=== PATIENT | female | born 1965 | race Caucasian/White ===

== ENCOUNTER 2016-10-30 17:13 | Inpatient (IN) | payer OTHER ==
[~2016-10-30] VITALS: Ht 162.6 cm; Wt 67.2 kg
[2016-10-30 19:54] VITALS: BP 101/54; RESP 19
[2016-10-30 20:00] VITALS: PULSE 55
[2016-10-30 21:37] VITALS: Ht 162.6 cm; Wt 67.2 kg
[2016-10-30] MEDS ORDERED: ACETAMINOPHEN 325 MG TAB PO PRN (22:00)
[2016-10-30] MEDS ORDERED: ONDANSETRON 4 MG TAB PO PRN (22:00)
[2016-10-30] MEDS ORDERED: NITROGLYCERIN (SL) 0.4 MG TAB SL PRN (22:00)
[2016-10-30] MEDS: ASPIRIN (EC) 81 MG TAB PO SCH (22:11)
[2016-10-30 23:30] VITALS: BP 101/56; RESP 19
[2016-10-31] VITALS (11 sets, daily range): BP systolic 91–108; BP diastolic 49–56; PULSE 48–72; RESP 14–20
[2016-10-31 02:11] LABS: BASOPHIL # 0.1 10^3/ul (0.0-0.1); EOSINOPHILS # 0.5 10^3/ul (0.0-0.5); EOSINOPHILS % 8.9 % (0.0-7.0); HEMATOCRIT 38.6 % (37.0-47.0); HEMOGLOBIN 12.9 g/dl (12.0-16.0); LYMPHOCYTES # 2.3 10^3/ul (0.8-2.9); LYMPHOCYTES % 39.7 % (15.0-51.0); MEAN CORPUSCULAR HEMOGLOBIN 30.3 pg (29.0-33.0); MEAN CORPUSCULAR HGB CONC 33.4 g/dl (32.0-37.0); MEAN CORPUSCULAR VOLUME 90.6 fl (82.0-101.0); MEAN PLATELET VOLUME 12.2 fl (7.4-10.4); MONOCYTE # 0.4 10^3/ul (0.3-0.9); MONOCYTES % 7.2 % (0.0-11.0); NEUTROPHIL # 2.5 10^3/ul (1.6-7.5); NEUTROPHILS % 42.9 % (39.0-77.0); PLATELET COUNT 233 10^3/UL (140-415); RED BLOOD COUNT 4.26 10^6/ul (4.20-5.40); RED CELL DISTRIBUTION WIDTH 12.7 % (11.5-14.5); WHITE BLOOD COUNT 5.9 10^3/ul (4.8-10.8)
[2016-10-31 02:40] LABS: ALANINE AMINOTRANSFERASE 29 IU/L (13-69); ALBUMIN 3.8 g/dl (3.3-4.9); ALBUMIN/GLOBULIN RATIO 1.46; ALKALINE PHOSPHATASE 56 IU/L (42-121); ANION GAP 16 (8-16); ASPARTATE AMINO TRANSFERASE 21 IU/L (15-46); BILIRUBIN,INDIRECT 0.2 mg/dl (0-1.1); BILIRUBIN,TOTAL 0.2 mg/dl (0.2-1.3); BLOOD UREA NITROGEN 12 mg/dl (7-20); CALCIUM 9.1 mg/dl (8.4-10.2); CARBON DIOXIDE 26 mmol/L (21-31); CHLORIDE 106 mmol/L (97-110); CHOL/HDL RATIO 2.2 RATIO; CHOLESTEROL 138 mg/dl (100-200); CREATININE 0.77 mg/dl (0.44-1.00); GLUCOSE 75 mg/dl (70-220); HDL CHOLESTEROL 61 mg/dl (37-92); MAGNESIUM 2.2 mg/dl (1.7-2.5); PHOSPHORUS 3.7 mg/dl (2.5-4.9); POTASSIUM 4.1 mmol/L (3.5-5.1); SODIUM 144 mmol/L (135-144); TOTAL PROTEIN 6.4 g/dl (6.1-8.1); TRIGLYCERIDES 83 mg/dl (0-149)
[2016-10-31 02:59] LABS: TROPONIN-I < 0.012 ng/ml (0.00-0.12)
[2016-10-31] MEDS: HEPARIN 5,000 UNIT/0.5 ML VIAL SC SCH ×2 (09:00→20:11)
[2016-10-31] MEDS: ASPIRIN (EC) 81 MG TAB PO SCH (09:38)
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
[2016-10-31] MEDS ORDERED: LORAZEPAM 0.5 MG TAB PO ONE (12:00)
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
[2016-10-31] MEDS: ATORVASTATIN 20 MG TAB PO SCH (20:11)
[2016-11-01] VITALS (13 sets, daily range): BP systolic 90–110; BP diastolic 51–62; PULSE 51–63; RESP 17–20
[2016-11-01] MEDS: PANTOPRAZOLE (EC) 40 MG TAB PO SCH (05:59)
[2016-11-01 06:45] LABS: BASOPHIL # 0.1 10^3/ul (0.0-0.1); BASOPHILS % 1.2 % (0.0-2.0); EOSINOPHILS # 0.7 10^3/ul (0.0-0.5); HEMATOCRIT 41.2 % (37.0-47.0); HEMOGLOBIN 13.3 g/dl (12.0-16.0); LYMPHOCYTES # 1.7 10^3/ul (0.8-2.9); LYMPHOCYTES % 28.3 % (15.0-51.0); MEAN CORPUSCULAR HEMOGLOBIN 29.3 pg (29.0-33.0); MEAN CORPUSCULAR HGB CONC 32.3 g/dl (32.0-37.0); MEAN CORPUSCULAR VOLUME 90.7 fl (82.0-101.0); MEAN PLATELET VOLUME 11.9 fl (7.4-10.4); MONOCYTE # 0.6 10^3/ul (0.3-0.9); MONOCYTES % 10.4 % (0.0-11.0); NEUTROPHIL # 2.9 10^3/ul (1.6-7.5); NEUTROPHILS % 48.8 % (39.0-77.0); PLATELET COUNT 247 10^3/UL (140-415); RED BLOOD COUNT 4.54 10^6/ul (4.20-5.40); RED CELL DISTRIBUTION WIDTH 12.8 % (11.5-14.5)
[2016-11-01 07:04] LABS: CALCIUM 9.5 mg/dl (8.4-10.2); CREATININE 0.74 mg/dl (0.44-1.00); POTASSIUM 4.5 mmol/L (3.5-5.1)
[2016-11-01 07:05] LABS: PHOSPHORUS 4.1 mg/dl (2.5-4.9)
[2016-11-01] MEDS: HEPARIN 5,000 UNIT/0.5 ML VIAL SC SCH (09:00)
[2016-11-01] MEDS: ASPIRIN (EC) 81 MG TAB PO SCH (09:31)
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
[2016-11-01] MEDS ORDERED: LORAZEPAM 2 MG INJ IV SCH (15:30)
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
[2016-11-01] MEDS: ATORVASTATIN 20 MG TAB PO SCH (20:17)
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
[2016-11-02] VITALS (12 sets, daily range): BP systolic 92–107; BP diastolic 51–56; PULSE 51–77; RESP 16–20
[2016-11-02] MEDS: PANTOPRAZOLE (EC) 40 MG TAB PO SCH (05:53)
[2016-11-02 07:29] LABS: BASOPHIL # 0.1 10^3/ul (0.0-0.1); BASOPHILS % 1.7 % (0.0-2.0); EOSINOPHILS # 0.6 10^3/ul (0.0-0.5); EOSINOPHILS % 10.4 % (0.0-7.0); LYMPHOCYTES # 2.2 10^3/ul (0.8-2.9); LYMPHOCYTES % 40.8 % (15.0-51.0); MEAN CORPUSCULAR HEMOGLOBIN 29.3 pg (29.0-33.0); MEAN CORPUSCULAR HGB CONC 32.5 g/dl (32.0-37.0); MEAN CORPUSCULAR VOLUME 90.1 fl (82.0-101.0); MEAN PLATELET VOLUME 11.9 fl (7.4-10.4); MONOCYTE # 0.5 10^3/ul (0.3-0.9); MONOCYTES % 10.2 % (0.0-11.0); NEUTROPHILS % 36.7 % (39.0-77.0); PLATELET COUNT 229 10^3/UL (140-415); RED BLOOD COUNT 4.44 10^6/ul (4.20-5.40); RED CELL DISTRIBUTION WIDTH 12.9 % (11.5-14.5); WHITE BLOOD COUNT 5.3 10^3/ul (4.8-10.8)
[2016-11-02 07:55] LABS: CALCIUM 9.2 mg/dl (8.4-10.2); CREATININE 0.77 mg/dl (0.44-1.00); POTASSIUM 4.3 mmol/L (3.5-5.1)
[2016-11-02] MEDS: ASPIRIN (EC) 81 MG TAB PO SCH (08:20)
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
[2016-11-02] MEDS ORDERED: LORAZEPAM 1 MG TAB PO PRN (15:00)
--- NOTE | 2016-11-02 15:07 | PN ---
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 Left-sided weakness: TIA v other (ie somatization from stress) neuro following neuroimaging ordered cont asa 2. incidental finding of carotid artery anyeursm: Patient had CTA head and neck performed at [facility] in [facility] neurosurg eval there--> aneurysm chronic and no surgical intervention was required at this time. No signs of any acute infarct as well. But again there is 2 mm left carotid artery aneurysm. -vascular advising NS f/u in the outpatient setting -hypercoag w/u ordered 3. Anxiety: f/u as outpatient 4. Dispo: Have asked [facility] case manager about the need for a contracted endovascular neurosurgeon consult as an outpatient as well for further follow- up and evaluation of this aneurysm. Subjective 24 Hr Interval Summary Free Text/Dictation Pt still very anxious. Mentioned that she's been under a great deal of personal stress lately. Also anxious about the prospect of MRIs Exam/Review of Systems Vital Signs Vitals Vital Signs Date Time Temp Pulse Resp B/P Pulse Ox O2 Delivery O2 Flow Rate FiO2 11/02/16 12:36 57 11/02/16 11:50 97.8 19 103/52 98 10/31/16 16:10 Room Air Intake and Output 11/01/16 11/01/16 11/02/16 15:00 23:00 07:00 Intake Total 800 ml 240 ml Balance 800 ml 240 ml Exam anxious, sitting up in bed no mrg lungs clear abd soft 1 cm erythematous nodule behind R ear with evidence of excoriations Results Result Diagram: 11/02/16 0650 11/02/16 0650 Results 24 hrs Laboratory Tests Test 11/02/16 06:50 White Blood Count 5.3 Red Blood Count 4.44 Hemoglobin 13.0 Hematocrit 40.0 Mean Corpuscular Volume 90.1 Mean Corpuscular Hemoglobin 29.3 Mean Corpuscular Hemoglobin Concent 32.5 Red Cell Distribution Width 12.9 Platelet Count 229 Mean Platelet Volume 11.9 H Neutrophils % 36.7 L Lymphocytes % 40.8 Monocytes % 10.2 Eosinophils % 10.4 H Basophils % 1.7 Nucleated Red Blood Cells % 0.0 Neutrophils # 2.0 Lymphocytes # 2.2 Monocytes # 0.5 Eosinophils # 0.6 H Basophils # 0.1 Nucleated Red Blood Cells # 0.0 Sodium Level 143 Potassium Level 4.3 Chloride Level 104 Carbon Dioxide Level 28 Anion Gap 15 Blood Urea Nitrogen 16 Creatinine 0.77 Glucose Level 83 Calcium Level 9.2 Medications Medications Current Medications Atorvastatin Calcium (Lipitor) 20 mg HS PO ; Start 10/31/16 at 21:00 Nitroglycerin (Nitroglycerin (Sl Tab) 0.4 Mg) 1 tab Q5M PRN SL ANGINA; Start at 22:00 Ondansetron HCl (Zofran Tab) 4 mg Q6H PRN PO NAUSEA AND/OR VOMITING; Start at 22:00 Acetaminophen (Tylenol Tab) 650 mg Q6H PRN PO PAIN AND OR ELEVATED TEMP; Start 10/30/16 at 22:00 Aspirin (Halfprin) 162 mg DAILY PO Last administered on 11/02/16t 08:20; Admin Dose 162 MG; Start 11/01/16 at 09:00 Pantoprazole (Protonix Tab) 40 mg DAILY@06 PO ; Start 11/01/16 at 06:00 Lorazepam (Ativan) 1.5 mg ONCE IV ; Start 11/01/16 at 15:30; Stop 11/02/16 at 15 :29 PENG LEGER MD Nov 02, 2016 15:07
[2016-11-02] MEDS: TRIAMCINOLONE ACET 0.025% 15 GM CR TOP SCH (21:00)
[2016-11-02] MEDS: ATORVASTATIN 20 MG TAB PO SCH (21:00)
[2016-11-03] VITALS (8 sets, daily range): BP systolic 93–100; BP diastolic 46–52; PULSE 53–67; RESP 18
[2016-11-03] MEDS: ASPIRIN (EC) 81 MG TAB PO SCH (08:30)
[2016-11-03] MEDS: TRIAMCINOLONE ACET 0.025% 15 GM CR TOP SCH (08:30)
[2016-11-03 08:54] LABS: BASOPHIL # 0.1 10^3/ul (0.0-0.1); EOSINOPHILS # 0.5 10^3/ul (0.0-0.5); EOSINOPHILS % 9.4 % (0.0-7.0); HEMATOCRIT 40.3 % (37.0-47.0); HEMOGLOBIN 13.2 g/dl (12.0-16.0); LYMPHOCYTES # 1.9 10^3/ul (0.8-2.9); LYMPHOCYTES % 32.6 % (15.0-51.0); MEAN CORPUSCULAR HEMOGLOBIN 29.3 pg (29.0-33.0); MEAN CORPUSCULAR HGB CONC 32.8 g/dl (32.0-37.0); MEAN CORPUSCULAR VOLUME 89.6 fl (82.0-101.0); MONOCYTE # 0.5 10^3/ul (0.3-0.9); MONOCYTES % 9.2 % (0.0-11.0); NEUTROPHIL # 2.7 10^3/ul (1.6-7.5); NEUTROPHILS % 47.5 % (39.0-77.0); PLATELET COUNT 219 10^3/UL (140-415); RED CELL DISTRIBUTION WIDTH 12.5 % (11.5-14.5); WHITE BLOOD COUNT 5.7 10^3/ul (4.8-10.8)
--- NOTE | 2016-11-03 09:14 | RADRPT ---
PROCEDURE: MRA brain without and with contrast CLINICAL INDICATION: Transient ischemic attack TECHNIQUE: 3-D [id number] intracranial MRA was performed on a 3.0T scanner before after adminis tration of 10 cc Magnevist intravenous contrast. Rotational MIP images were reformatted. The [facility] e images were also reviewed. COMPARISON: None available FINDINGS: The bilateral internal carotid arteries are patent. The bilateral middle, anterior cerebral arterie s are patent. The bilateral vertebral arteries, basilar artery and bilateral posterior cerebral art eries are patent. No aneurysm, or vascular malformation is identified. IMPRESSION: Unremarkable MRA of the brain. RPTAT: VV .Elio Rivers MD, MD Date Time Electronically viewed and signed by .Elio Rivers MD, on 11/03/2016 08:17 .O/
[2016-11-03 09:19] LABS: POTASSIUM 4.3 mmol/L (3.5-5.1)
[2016-11-03 09:20] LABS: CALCIUM 9.1 mg/dl (8.4-10.2); CREATININE 0.75 mg/dl (0.44-1.00)
--- NOTE | 2016-11-03 11:19 | PN ---
Date/Time of Note Date/Time of Note DATE: 11/03/16 TIME: 11:16 Assessment/Plan Lines/Catheters IV Catheter Type (from [facility]): Saline Lock Todd in Place (from [facility]): No Assessment/Plan Chief Complaint/Hosp Course -Left cavernous carotid artery aneurysm: It seems that the patient has developed left-sided weakness upper and lower extremity. This is unlikely related to her coincidental finding of a cavernous carotid artery aneurysm, as the symptoms do not correlate with our imaging that was done at the outside hospital. The patient's carotid arteries that are extracranial do not show any flow-limiting stenosis or atherosclerotic disease. -Recommend hematology evaluation for possible hypercoagulable workup. -Appreciate neurology stroke evaluation -Optimize vascular status (BP medications, diet, nutrition, exercise, sugar control, antiplatelets). -Discussed findings, plan and management with the patient and she understands. -Thank you for allowing us to partake in the care of your patient. Please call with any questions. Problems: Subjective 24 Hr Interval Summary no new vascular events overnight Exam/Review of Systems Vital Signs Vitals Vital Signs Date Time Temp Pulse Resp B/P Pulse Ox O2 Delivery O2 Flow Rate FiO2 11/03/16 08:24 53 11/03/16 08:05 97.6 18 100/50 99 10/31/16 16:10 Room Air Intake and Output 11/02/16 11/02/16 11/03/16 15:00 23:00 07:00 Intake Total 800 ml 400 ml Balance 800 ml 400 ml Exam Free Text/Dictation GENERAL: Alert and oriented x3. CARDIOVASCULAR: S1 and S2 present. ABDOMEN: Soft, nontender and nondistended. Bowel sounds positive. LUNGS: Clear to auscultation bilaterally. No crackles. EXTREMITIES: Right lower extremity palpable femoral pulse, palpable pedal pulse. Motor sensory intact. Capillary refill 2 seconds. Left lower extremity palpable femoral pulse, palpable pedal pulse. Motor and sensory 2-3/5. Capillary refill 2 seconds. Results Result Diagram: 11/03/16 0741 11/03/16 0741 MICAELA COMBS MD Nov 03, 2016 11:19
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
--- NOTE | 2016-11-03 11:56 | PDOCDIS ---
Discharge Instructions CONDITION Patient Condition: Stable HOME CARE INSTRUCTIONS: Special Diet: Cardiac Diet FOLLOW UP/APPOINTMENTS Follow-up Plan Follow up with Dr Batista as advised by the Dr Parisi (neurology) Set up an appointment with a neurosurgeon covered by your insurance within the next 4 weeks to talk about your aneurysm Ask your regular doctor about a referral to a mental health provider to help with stress management PENG LEGER MD Nov 03, 2016 11:56
--- NOTE | 2016-11-03 11:59 | PDOCDIS ---
Discharge Instructions CONDITION Patient Condition: Stable HOME CARE INSTRUCTIONS: Special Diet: Cardiac Diet FOLLOW UP/APPOINTMENTS Follow-up Plan Follow up with Dr Batista as advised by the Dr Parisi (neurology) Set up an appointment with a neurosurgeon covered by your insurance within the next 4 weeks to talk about your aneurysm Ask your regular doctor about a referral to a mental health provider to help with stress management Of note you also had several blood tests obtained to check for risk factors for blood clots. The results of these tests are still pending. Please ask your regular doctor to contact the hospital in 1 week to obtain those test results PENG LEGER MD Nov 03, 2016 11:59
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
[2016-11-04 15:06] LABS: PROTEIN C 122 % normal (70-180)
== END 2016-11-03 17:30 | disposition home or self-care (01) | DRG 948 ==
LOC: MS4 19:18
PROVIDERS: ADMIT Internal Medicine; ATTEND Internal Medicine
DX: R53.1 Weakness (principal); I67.1 Cerebral aneurysm, nonruptured; F41.9 Anxiety disorder, unspecified; Z86.73 Personal history of transient ischemic attack (TIA), and cerebral infarction without residual deficits
CPT/HCPCS: 70546; 70553; 80048; 80053; 80061; 81240; 83036; 83735; 83890; 84100; 84443; 84484; 85025; 85300; 85302; 85305; 85613; 86146; 86147; 97110; 97116; 97161; 97530; J1644; J2060